=== PATIENT | female | born 1975 | race Caucasian/White ===

== ENCOUNTER → 2016-06-19 | Outpatient (CLI) | payer BC ==
[~2016-06-19] MED LIST: CYMBALTA60 MG PO; FLEXERIL10 MG PO; LORTAB 5/500 501 TAB PO; NAPROSYN500 MG PO; NO HOME MEDICATIONS; XANAX1 MG PO
== END ==
LOC: BHSO 15:11
DX: F31.81 Bipolar II disorder (principal)

== ENCOUNTER → 2016-07-23 | Outpatient (CLI) | payer BC | LOC: BHSO 10:13 | DX: F31.81 Bipolar II disorder (principal) ==

== ENCOUNTER → 2016-08-27 | Outpatient (CLI) | payer BC | LOC: BHSO 09:19 | DX: F31.73 Bipolar disorder, in partial remission, most recent episode manic (principal) ==

== ENCOUNTER → 2016-10-23 | Outpatient (CLI) | payer BC | LOC: BHSO 15:57 | DX: F31.73 Bipolar disorder, in partial remission, most recent episode manic (principal) ==

== ENCOUNTER → 2016-11-30 | Outpatient (CLI) | payer BC | LOC: BHSO 15:51 | DX: F31.11 Bipolar disorder, current episode manic without psychotic features, mild (principal) ==

== ENCOUNTER → 2016-12-17 | Outpatient (CLI) | payer BC | LOC: BHSO 16:08 | DX: F31.73 Bipolar disorder, in partial remission, most recent episode manic (principal) ==

== ENCOUNTER → 2017-01-05 | Outpatient (CLI) | payer BC | LOC: BHSO 08:41 | DX: F31.11 Bipolar disorder, current episode manic without psychotic features, mild (principal) ==

== ENCOUNTER → 2017-01-11 | Outpatient (CLI) | payer BC | LOC: BHSO 08:49 | DX: F41.1 Generalized anxiety disorder (principal) ==

== ENCOUNTER → 2017-02-12 | Outpatient (CLI) | payer BC | LOC: BHSO 16:11 | DX: F31.73 Bipolar disorder, in partial remission, most recent episode manic (principal) ==

== ENCOUNTER → 2017-03-15 | Outpatient (CLI) | payer BC | LOC: BHSO 14:43 | DX: F31.73 Bipolar disorder, in partial remission, most recent episode manic (principal) ==

== ENCOUNTER → 2017-04-20 | Outpatient (CLI) | payer BC | LOC: BHSO 15:13 | DX: F31.73 Bipolar disorder, in partial remission, most recent episode manic (principal) ==

== ENCOUNTER → 2017-07-20 | Outpatient (CLI) | payer BC | LOC: BHSO 14:48 | DX: F31.73 Bipolar disorder, in partial remission, most recent episode manic (principal) | CPT/HCPCS: G0463 ==

== ENCOUNTER → 2017-09-28 | Outpatient (CLI) | payer BC | LOC: BHSO 15:13 | DX: F90.0 Attention-deficit hyperactivity disorder, predominantly inattentive type (principal) | CPT/HCPCS: G0463 ==

== ENCOUNTER → 2017-11-09 | Outpatient (CLI) | payer BC | LOC: BHSO 09:31 | DX: F31.81 Bipolar II disorder (principal) | CPT/HCPCS: G0463 ==

== ENCOUNTER → 2018-01-11 | Outpatient (CLI) | payer BC | LOC: BHSO 13:54 | DX: F90.0 Attention-deficit hyperactivity disorder, predominantly inattentive type (principal) | CPT/HCPCS: G0463 ==

== ENCOUNTER → 2018-04-05 | Outpatient (CLI) | payer BC | LOC: BHSO 09:37 | DX: F33.41 Major depressive disorder, recurrent, in partial remission (principal) | CPT/HCPCS: G0463 ==

== ENCOUNTER 2018-05-01 06:07 | Emergency (ER) | payer BC ==
[~2018-05-01] VITALS: Ht 167.6 cm; Wt 85.9 kg
[2018-05-01 06:13] VITALS: BP 140/85; TEMP 98.8
[2018-05-01] MEDS ORDERED: ADDERALL XR20 MG PO (06:15)
[2018-05-01] MEDS ORDERED: PRISTIQ100 MG PO (06:16)
[2018-05-01 06:25] LABS: COLLECTION METHOD CLEAN CATCH
[2018-05-01 06:34] LABS: PH 5 (5-8); URINE APPEARANCE Cloudy; URINE BACTERIA Rare /hpf; URINE BILIRUBIN Negative (NEGATIVE); URINE BLOOD 3+ (NEGATIVE); URINE COLOR Amber; URINE GLUCOSE Negative (NEGATIVE); URINE KETONE Negative (NEGATIVE); URINE LEUKOCYTE ESTERASE 2+ (NEGATIVE); URINE NITRATE Positive (NEGATIVE); URINE PROTEIN(semi-quant) 2+ (NEGATIVE); URINE RBC >50 /hpf; URINE UROBILINOGEN >=4.0 mg/dL (NEGATIVE)
[2018-05-01] MEDS ORDERED: BACTRIM DS 8001 TAB PO (06:48)
[2018-05-01 06:56] VITALS: PULSE 89
[2018-05-03] MEDS ORDERED: CEFTIN 250250 MG/TAB PO (11:33)
== END 2018-05-01 06:57 | disposition home or self-care (01) ==
LOC: COL.ER 06:07
PROVIDERS: Family Medicine
DX: N30.90 Cystitis, unspecified without hematuria (principal)

== ENCOUNTER → 2018-06-21 | Outpatient (CLI) | payer BC ==
[~2018-06-21] MED LIST changes: +ADDERALL XR20 MG PO; +BACTRIM DS 8001 TAB PO; +CEFTIN 250250 MG/TAB PO; +PRISTIQ100 MG PO
== END ==
LOC: BHSO 08:32
DX: F41.1 Generalized anxiety disorder (principal)
CPT/HCPCS: G0463

== ENCOUNTER → 2018-08-16 | Outpatient (CLI) | payer BC | LOC: BHSO 15:38 | DX: F41.1 Generalized anxiety disorder (principal) | CPT/HCPCS: G0463 ==

== ENCOUNTER → 2019-02-17 | Outpatient (CLI) | payer BC | LOC: BHSO 15:58 | DX: F41.1 Generalized anxiety disorder (principal) | CPT/HCPCS: G0463 ==

== ENCOUNTER → 2019-04-20 | Outpatient (CLI) | payer BC | LOC: BHSO 16:15 | DX: F90.0 Attention-deficit hyperactivity disorder, predominantly inattentive type (principal) | CPT/HCPCS: G0463 ==

== ENCOUNTER → 2019-07-11 | Outpatient (CLI) | payer BC | LOC: BHSO 15:14 | DX: F31.81 Bipolar II disorder (principal) | CPT/HCPCS: G0463 ==

== ENCOUNTER → 2019-08-10 | Outpatient (CLI) | payer BC | LOC: BHSO 15:53 | DX: F31.81 Bipolar II disorder (principal) | CPT/HCPCS: G0463 ==

== ENCOUNTER → 2019-10-31 | Outpatient (CLI) | payer OTHER | LOC: BHSO 15:58 | DX: F41.1 Generalized anxiety disorder (principal) | CPT/HCPCS: G0463 ==

== ENCOUNTER → 2020-03-12 | Outpatient (CLI) | payer OTHER | LOC: BHSO 14:58 | DX: F41.1 Generalized anxiety disorder (principal) | CPT/HCPCS: G0463 ==

== ENCOUNTER 2020-08-02 07:37 | Emergency (ER) | payer OTHER ==
[~2020-08-02] VITALS: Ht 167.6 cm; Wt 90.9 kg
[2020-08-02 07:45] VITALS: BP 144/88; TEMP 97.9
[2020-08-02 07:56] LABS: COLLECTION METHOD CLEAN CATCH
[2020-08-02 08:06] LABS: MUCOUS Present /lpf; PH 5 (5-8); URINE APPEARANCE Hazy; URINE BACTERIA Occasional /hpf; URINE BILIRUBIN Negative (NEGATIVE); URINE BLOOD Negative (NEGATIVE); URINE COLOR Yellow; URINE GLUCOSE Negative (NEGATIVE); URINE KETONE Negative (NEGATIVE); URINE LEUKOCYTE ESTERASE 2+ (NEGATIVE); URINE NITRATE Negative (NEGATIVE); URINE PROTEIN(semi-quant) 1+ (NEGATIVE); URINE UROBILINOGEN Negative (NEGATIVE)
[2020-08-02] MEDS ORDERED: MACROBID 1100 MG/CAP PO (08:46)
[2020-08-02 09:35] VITALS: PULSE 82
== END 2020-08-02 08:50 | disposition home or self-care (01) ==
LOC: COL.ER 07:37
PROVIDERS: Family Medicine
DX: N30.00 Acute cystitis without hematuria (principal); Z87.891 Personal history of nicotine dependence; Z98.890 Other specified postprocedural states

== ENCOUNTER 2021-11-10 11:04 | Emergency (ER) | payer OTHER ==
[~2021-11-10] VITALS: Ht 167.6 cm; Wt 86.4 kg
[~2021-11-10 11:04] MED LIST changes: +MACROBID 1100 MG/CAP PO
[2021-11-10 11:10] VITALS: TEMP 97.4
[2021-11-10 11:31] LABS: COLLECTION METHOD CLEAN CATCH
[2021-11-10 11:35] LABS: BASO # 0.1 K/mm3 (0.0-0.2); BASO % 0.4 % (0.0-2.0); EOS % 0.1 % (0.0-4.0); GRAN # 14.1 K/mm3 (1.4-6.5); GRAN % 85.4 % (42.2-75.2); HEMATOCRIT 45.9 % (37.0-47.0); HEMOGLOBIN 14.7 g/dl (12.5-16.0); LYMPH # 1.9 K/mm3 (1.2-3.4); LYMPH % 11.2 % (20.0-51.0); MEAN CELL VOLUME 90 fl (80.0-100.0); MEAN CORPUSCULAR HEMOGLOBIN 29 pg (27-31); MEAN CORPUSCULAR HGB CONC 32 g/dl (33.0-37.0); MEAN PLATELET VOLUME 9.3 fl (7.4-10.4); MONO # 0.4 K/mm3 (0.1-0.6); MONO % 2.5 % (1.7-9.3); PLATELET COUNT 344 K/mm3 (130-400); RED BLOOD COUNT 5.13 M/mm3 (4.10-5.30); REDCELL DISTRIBUTION WIDTH-CV 13.9 % (11.5-14.5)
[2021-11-10 11:54] LABS: MUCOUS Present (NOT PRESENT); PH 6 (5-8); SQUAMOUS EPITHELIAL 0-2 /hpf (0-10); URINE APPEARANCE Clear (CLEAR/HAZY); URINE BACTERIA None Seen /hpf (NONE SEEN); URINE BILIRUBIN Negative (NEGATIVE); URINE BLOOD Negative (NEGATIVE); URINE COLOR Yellow (YELLOW); URINE GLUCOSE 1+ (NEGATIVE); URINE KETONE Trace (NEGATIVE); URINE LEUKOCYTE ESTERASE Trace (NEGATIVE); URINE NITRATE Negative (NEGATIVE); URINE PROTEIN(semi-quant) Negative (NEGATIVE); URINE RBC 0-2 /hpf (0-2); URINE UROBILINOGEN Negative (NEGATIVE)
[2021-11-10 11:54] LABS: ALBUMIN 3.7 gm/dL (3.5-5.0); BILIRUBIN,TOTAL 0.7 mg/dL (0.2-1.2); CALCIUM 9.6 mg/dL (8.4-10.2); CREATININE, serum 0.75 mg/dL (0.57-1.11); TOTAL PROTEIN 7.9 gm/dL (6.2-8.1)
[2021-11-10 12:06] LABS: POTASSIUM 3.4 mmol/L (3.5-4.5)
[2021-11-10] MEDS ORDERED: ZOFRAN ODT4 MG PO (13:09)
[2021-11-10 13:29] VITALS: BP 163/91; PULSE 65
== END 2021-11-10 13:32 | disposition home or self-care (01) ==
LOC: COL.ER 11:04
PROVIDERS: Nurse Practitioner Primary Care
DX: K52.9 Noninfective gastroenteritis and colitis, unspecified (principal); Z87.891 Personal history of nicotine dependence; Z87.19 Personal history of other diseases of the digestive system
CPT/HCPCS: J1885; J2270; J2405; J2550; J7030; Q9967